=== PATIENT | female | born 1955 | race Caucasian/White ===

== ENCOUNTER → 2024-10-09 11:38 | Outpatient (REF) | payer MEDICARE, OTHER, SELFPAY | LOC: WDC 11:38 | PROVIDERS: ATTENDING PHYSICIAN Obstetrics & Gynecology Gynecology; FAMILY PHYSICIAN Physician Assistant Medical | DX: Z12.31 Encounter for screening mammogram for malignant neoplasm of breast (principal) | CPT/HCPCS: 77063; 77067 ==

== ENCOUNTER → 2025-05-30 09:40 | Outpatient (REF) | payer MEDICARE, OTHER, SELFPAY | LOC: RAD 09:40 | PROVIDERS: ATTENDING PHYSICIAN Physician Assistant Medical | DX: Z78.0 Asymptomatic menopausal state (principal); R29.890 Loss of height; I10 Essential (primary) hypertension | CPT/HCPCS: 77080 ==